=== PATIENT | female | born 1965 | race Caucasian/White ===

== ENCOUNTER 2022-11-19 22:45 | Emergency (ER) | payer SELFPAY ==
[~2022-11-19] VITALS: Ht 170.2 cm; Wt 79.4 kg
[~2022-11-19 22:45] MED LIST: ASPIRIN81 MG PO; MULTI-VITAMIN1 EACH PO
[2022-11-19 22:59] LABS: BASOPHILS % 0.5 % (0.0-1.0); EOSINOPHILS # (AUTO) 0.1 (0.0-0.4); EOSINOPHILS % 1.5 % (0.0-6.0); HEMATOCRIT 43.5 % (34.2-44.1); HEMOGLOBIN 14.2 g/dL (12.0-16.0); LYMPHOCYTES # (AUTO) 3.1 (1.0-3.2); LYMPHOCYTES % 40.2 % (18.0-39.1); MEAN CORPUSCULAR HEMOGLOBIN 29.5 pg (28-32); MEAN CORPUSCULAR HGB CONC 32.6 g/dL (31-35); MEAN CORPUSCULAR VOLUME 90.4 fL (81-99); MONOCYTES # (AUTO) 0.9 (0.2-0.8); MONOCYTES % 11.3 % (4.4-11.3); NEUTROPHILS # (AUTO) 3.6 (2.1-6.9); NEUTROPHILS % 46.4 % (38.7-80.0); PLATELET COUNT 274 x10e3/uL (140-360); RED BLOOD COUNT 4.81 x10e6/uL (3.6-5.1); RED CELL DISTRIBUTION WIDTH 13.8 % (11.7-14.4)
[2022-11-19 23:19] LABS: ALBUMIN 3.7 g/dL (3.5-5.0); ALBUMIN/GLOBULIN RATIO 0.9 (0.8-2.0); ANION GAP 13.5 mmol/L (8-16); CALCIUM 9.1 mg/dL (8.4-10.2); CREATININE, SERUM 0.89 mg/dL (0.57-1.11); POTASSIUM 3.5 mmol/L (3.5-5.1)
[2022-11-19 23:25] LABS: CREATINE KINASE MB 0.8 ng/mL (0-5.0)
[2022-11-19] MEDS ORDERED: HYDRALAZINE HCL 20 MG/ML VIAL IV STA (23:34)
[2022-11-19] MEDS ORDERED: HYDRALAZINE HCL 20 MG/ML VIAL ONE (23:56)
[2022-11-20] MEDS ORDERED: DICYCLOMINE HCL 20 MG/2 ML VIAL IM ONE
[2022-11-20] MEDS ORDERED: METOPROLOL TARTRATE INJ 1 MG/ML VIAL IV STA (00:16)
[2022-11-20] MEDS ORDERED: ONDANSETRON HCL INJ 2MG/ML 2ML 2 MG/ML VIAL ONE (00:19)
[2022-11-20] MEDS ORDERED: ONDANSETRON HCL INJ 2MG/ML 2ML 2 MG/ML VIAL IV STA (00:58)
[2022-11-20 01:41] VITALS: BP 165/84
== END 2022-11-20 01:25 | disposition other institution (70) ==
LOC: ER 22:50
DX: R07.89 Other chest pain (principal); I16.0 Hypertensive urgency; I10 Essential (primary) hypertension; Z20.822 Contact with and (suspected) exposure to COVID-19; R94.31 Abnormal electrocardiogram [ECG] [EKG]; Z95.1 Presence of aortocoronary bypass graft
CPT/HCPCS: 36415; 71046; 80053; 82550; 82553; 84484; 85025; 93005; 99284; J0360; J2405; U0002

== ENCOUNTER 2024-06-28 20:07 | Emergency (ER) | payer OTHER ==
[~2024-06-28] VITALS: Ht 170.2 cm; Wt 77.1 kg
[2024-06-28 20:07] VITALS: TEMP 97.8
[2024-06-28] MEDS: Morphine 4mg INJECTION 4 MG/ML INJ IV ONE (20:29)
[2024-06-28] MEDS: ONDANSETRON HCL INJ 2MG/ML 2ML 2 MG/ML VIAL IV STA ×2 (20:29→22:12)
[2024-06-28 20:33] VITALS: PULSE 78
[2024-06-28] MEDS: METOPROLOL TARTRATE 50 MG TAB PO ONE (20:33)
[2024-06-28] MEDS: METOPROLOL TARTRATE INJ 1 MG/ML VIAL IV ONE (20:33)
[2024-06-28 20:41] LABS: BASOPHILS # (AUTO) 0.1 (0.0-0.1); BASOPHILS % 0.8 % (0.0-1.0); EOSINOPHILS # (AUTO) 0.1 (0.0-0.4); EOSINOPHILS % 0.7 % (0.0-6.0); HEMATOCRIT 49.6 % (34.2-44.1); HEMOGLOBIN 16.1 g/dL (12.0-16.0); LYMPHOCYTES # (AUTO) 2.5 (1.0-3.2); MEAN CORPUSCULAR HGB CONC 32.5 g/dL (31-35); MEAN CORPUSCULAR VOLUME 95.4 fL (81-99); MONOCYTES # (AUTO) 0.7 (0.2-0.8); MONOCYTES % 9.4 % (4.4-11.3); NEUTROPHILS # (AUTO) 4.1 (2.1-6.9); NEUTROPHILS % 54.8 % (38.7-80.0); PLATELET COUNT 282 x10e3/uL (140-360); RED CELL DISTRIBUTION WIDTH 12.8 % (11.7-14.4); WHITE BLOOD COUNT 7.48 x10e3/uL (4.8-10.8)
[2024-06-28 20:46] LABS: INR 0.91; PROTHROMBIN TIME 12.8 seconds (11.9-14.5)
[2024-06-28 20:55] LABS: ALBUMIN 4.1 g/dL (3.5-5.0); ALBUMIN/GLOBULIN RATIO 0.9 (0.8-2.0); ANION GAP 16.6 mmol/L (8-16); BILIRUBIN,TOTAL 0.3 mg/dL (0.2-1.2); CALCIUM 9.5 mg/dL (8.4-10.2); CREATININE, SERUM 0.83 mg/dL (0.57-1.11); POTASSIUM 3.6 mmol/L (3.5-5.1); TOTAL PROTEIN 8.6 g/dL (6.5-8.1)
[2024-06-28 21:01] LABS: TROPONIN I 0.019 ng/mL (0-0.300)
[2024-06-28 21:53] VITALS: BP 207/92
[2024-06-28] MEDS: HYDRALAZINE HCL 20 MG/ML VIAL IV STA (21:53)
[2024-06-28] MEDS: ACETAMINOPHEN 325 MG TAB PO ONE (22:28)
[2024-06-28] MEDS ORDERED: PANTOPRAZOLE SO40 MG PO (23:20)
[2024-06-28] MEDS ORDERED: DICYCLOMINE HCL20 MG PO (23:20)
[2024-06-28] MEDS ORDERED: METOPROLOL TART50 MG PO (23:20)
[2024-06-28] MEDS ORDERED: PLAVIX75 MG PO (23:20)
[2024-06-28] MEDS ORDERED: LIPITOR20 MG PO (23:20)
[2024-06-28 23:54] VITALS: PULSE 64; RESP 20; O2SAT 98
== END 2024-06-29 00:08 | disposition home or self-care (01) ==
LOC: ER 20:10
DX: R07.89 Other chest pain (principal); I16.0 Hypertensive urgency; K80.20 Calculus of gallbladder without cholecystitis without obstruction; I10 Essential (primary) hypertension; E78.5 Hyperlipidemia, unspecified; I25.10 Atherosclerotic heart disease of native coronary artery without angina pectoris; R94.31 Abnormal electrocardiogram [ECG] [EKG]; I25.2 Old myocardial infarction; Z95.1 Presence of aortocoronary bypass graft; Z86.73 Personal history of transient ischemic attack (TIA), and cerebral infarction without residual deficits
CPT/HCPCS: 36415; 71045; 76705; 80053; 82550; 83690; 83880; 84484; 85025; 85610; 85730; 93005; 99284; J0360; J2405